=== PATIENT | male | born 1935 | race Caucasian/White ===

== ENCOUNTER 2024-04-16 18:08 | Observation (INO) | payer OTHER, SELFPAY ==
[2024-04-16 15:23] VITALS: BP 163/87
[2024-04-16 15:39] LABS: Glucose - Point of Care 94 mg/dl (70-99)
[2024-04-16 16:00] LABS: % Basophils 0.8 % (0-2); % Eosinophils 3.1 % (0-6); % Immature Granulocytes 0.4 % (0-0.5); % Lymphocytes 23.6 % (20.5-51.1); % Monocytes 10.5 % (1.7-9.3); % Neutrophils 61.6 % (42.2-75.2); Absolute Basophils 0.1 10^3/uL (0-0.2); Absolute Eosinophils 0.2 10^3/uL (0-0.7); Absolute Lymphocytes 1.9 10^3/uL (1.2-3.4); Absolute Monocytes 0.8 10^3/uL (0.1-0.6); Absolute Neutrophils 4.8 10^3/uL (1.4-6.5); Hematocrit 39.1 % (39.0-52.0); Hemoglobin 13.4 g/dL (13.0-18.0); Mean Corp Hgb Conc. 34.3 g/dL (33.0-37.0); Mean Corpuscular Hgb 30.9 pg (27.0-31.0); Mean Corpuscular Volume 90.1 fL (80.0-94.0); Mean Platelet Volume 9.7 fL (7.4-10.4); Nucleated Red Blood Cells % 0 % (-); Platelet Count 191 10^3/uL (130-400); Red Blood Cell Count 4.34 10^6/uL (4.70-6.10); White Blood Cell Count 7.8 10^3/uL (4.8-10.8)
--- NOTE | 2024-04-16 16:25 | ED.GENMED ---
History of Present Illness
General
Chief Complaint: Dizziness
Source: patient
Exam Limitations: none
Time Seen by Provider: 04/16/24 16:06
History of Present Illness
History of Present Illness:
Patient describing vague dizziness. Seem to start late this morning although states he had some few episodes of the last couple days. Not describing true vertigo. No syncope. No headache chest pain shortness of breath or other neurologic
symptoms. [place] uncomfortable driving home. Was here with his .
Past History
Past History
ED Past Medical History: Arrthythmia (SB, SVT), HTN and Hypercholesterolemia
ED Past Surgical History: None
Social History
Tobacco: Non-smoker
Review of Systems
Review of Systems
All Other Systems: Not applicable
Respiratory: Reports no symptoms
Cardiac: Reports no symptoms
Phy Exam
Physical Exam
Physical Exam:
GENERAL: Alert and oriented in no apparent distress
EYE: Orbits normal.
NECK: Supple, no significant adenopathy.
ENT: Pharynx without erythema
CARDIAC: Regular rate and rhythm without any obvious murmurs. Pacemaker upper chest wall
LUNGS: Clear breath sounds,normal
ABDOMEN: Soft, without focal tenderness or distention
NEUROLOGICAL: Alert and oriented , speech normal. Slow to answer many questions however. Patient states this is not unusual. No facial droop. No nystagmus. Extraocular muscles intact. No rotatory nystagmus. No bidirectional nystagmus.
[id number] normal. Light touch intact.
SKIN: Warm and dry, no rash or lesion, no discoloration, skin intact.
MUSCULOSKELETAL: No edema,no deformity.Good color
PSYCH: Normal and appropriate interaction.
Course
Orders/Labs/Results
Orders:
Orders
04/16/24 15:27
Electrocardiogram (*1) Urgent
Reason for Study: Vertigo / Dizzy
EKG- Treatment ONCE
04/16/24 15:39
Complete Blood Count/With Diff Urgent
Comprehensive Metabolic Panel Urgent
Folate Urgent
Comment: ADDON
Iron Urgent
Comment: ADDON
Total Iron Binding Urgent
Comment: ADDON
Transferrin [S] Urgent
Comment: ADDON
Vitamin B12 Urgent
Comment: ADDON
04/16/24 15:41
CT Head W/o Iv Contrast Urgent
Comment:
Reason For Exam: dizziness that started today.
04/16/24 16:25
Cardiac Monitoring- Treatment ONCE
IV Insert/Care/Rem.- Treatment PRN
Pulse Ox/cont/shift [RESP] Stat
Quantity: 1
04/16/24 17:27
Aspirin Chewable [Low Strength Aspirin] 324 mg PO NOW STA
04/16/24 17:[address] Non Medication Order As Directed
Physician Order: NOTIFY MD WHEN MED REC DONE
Above order entered?: Yes
04/16/24 17:41
MRI Brain [MR Brain Without Contrast] Routine
Comment:
Reason For Exam: dizziness
Recent pill cam endoscopy?: No
Orthostatic Vital Signs As Directed
Orthostatic VS Frequency: BID
Comment: include now
Ot Eval And Treat Routine
Pt Eval And Treat Routine
Activity Level: As Tolerated
04/16/24 17:43
Add On- LAB Routine
Tests Added?: iron, ferritin, transferrin, TIBC, B12, folate
04/16/24 17:44
Admit/Transfer Patient As Directed
Co-Sign Provider:
Level of Care: Observation services
Assign to:: Telemetry
Physician / Group: natalie sullivan
Diagnosis: dizziness, ambulatory dysfunction
Reason for Telemetry: Arrhythmia
Date to Stop Telemetry: 04/19/24
Time to Stop Telemetry: 11:00
Reason for Hospitalization: dizziness, ambulatory dysfunction
PRN Pain Medication Management As Directed
May give lesser potent ordered pain med per pt: Yes
preference::
Protocol:: Medication orders for pain may be administered in a
manner that supports deferring to patient preference
when the pt is:
- Requesting an ordered lesser potent pain medication.
Least to most potent pain medications are defined
as: acetaminophen < NSAID < tramadol < opioids
(morphine, oxycodone, hydromorphone).
- Requesting a lesser dose of the same medication IF
ORDERED.
- Requesting a less intrusive route of administration
if both routes are prescribed by the provider (PO <
IV).
04/16/24 17:45
Code Status As Directed
Resuscitation Status: Full Code
04/16/24 17:58
NEUROLOGY CONSULT Routine
Consulting Provider: Dominic Oreilly
Was physician already notified: Yes
04/16/24 17:59
HydrALAZINE [Apresoline] 5 mg IV Q6HPRN PRN
04/16/24 19:26
Acetaminophen [Tylenol/Feverall] 650 mg RECTAL Q4HPRN PRN
Acetaminophen [Tylenol] 650 mg PO Q4HPRN PRN
Enoxaparin Sodium [Lovenox] 40 mg SC QPM
Pantoprazole [Protonix] 40 mg PO QPM
04/16/24 19:26
CT Head Angio W/wo Iv Contrast Routine
Comment:
Reason For Exam: stroke/TIA
Case Management Consult ONCE
Case Management Consult: Discharge Planning
Comment: stroke/tia
DIETARY CONSULT Routine
Reason for Consult: stroke/TIA
Activity As Directed
Activity Level: As Tolerated
NIH Stroke Scale As Directed
Directions: Per protocol
Comment: every shift and with any change in condition or mental status
Neurological Checks As Directed
Frequency: q4h
Additional Instructions:: q4h x 24h upon admission to the floor, then qshift & with any change in condition
and mental status
Pneumatic Compression Sleeves As Directed
Type: Knee high
Vital Signs As Directed
Frequency: Per unit guidelines
Ot Eval And Treat Routine
US Cerebrovascular Routine
Comment:
Reason For Exam: stroke/TIA
DX Deep Vein Thrombosis Video Routine
04/17/24 06:00
BMP [Basic Metabolic Panel] IN AM
Cardiovascular Evaluation IN AM
Complete Blood Count/No Diff IN AM
Glycohemoglobin (HgbA1c) IN AM
TSH Reflex To Free T4 IN AM
Levothyroxine [Synthroid] 100 mcg PO DAILY@0600
04/17/24 08:00
Aspirin Low Dose EC [Aspir Low (Enteric Coated)] 81 mg PO DAILY
Cholecalciferol (Vitamin D3) [VITAMIN D3 (cholecalciferol)] 25 mcg PO DAILY
Multivitamin [Theragran] 1 tablet PO DAILY
Psyllium [Metamucil, Konsyl] 1 packet PO DAILY
04/19/24 11:00
DC Protocol for Telemetry ONCE
Abnormal Lab Results
04/16/24
15:39
RBC 4.34 L 10^6/uL
(4.70-6.10)
Absolute Monos (auto) 0.8 H 10^3/uL
(0.1-0.6)
Monocytes % 10.5 H %
(1.7-9.3)
BUN 23 H mg/dl
(9-20)
04/16/24 15:39
04/16/24 15:39
Vital Signs
Initial and Last Documented VS:
Initial Vital Signs
Temp Pulse Resp BP Pulse Ox
98 F 79 18 163/87 100
04/16/24 15:23 04/16/24 15:23 04/16/24 15:23 04/16/24 15:23 04/16/24 15:23
Last Documented Vital Signs
Temp Pulse Resp BP Pulse Ox
98.3 F 79 18 167/98 99
04/16/24 19:49 04/16/24 20:30 04/16/24 19:49 04/16/24 20:30 04/16/24 19:49
MDM/Problems Addressed
Differential Diagnosis Includes:
Describing disequilibrium somewhat poor historian. Did hit his face getting out of the car likely from unsteadiness. Small abrasion to the right cheek. Patient is able to ambulate but slightly wide-based. Not describing vertigo or inner ear
issues. Workup in progress. However warrants inpatient management.
*Pulse Oximetry
Patient hypoxic: no
*EKG
Interpreted by ED Provider?: Yes
Interpretation: abnormal
Comparison EKG: no changes
Heart Rate: 71
Rate: normal
Rhythm: av sequential
*Critical Care Note
Total Time (30-74mins, 75-104mins- exclusive of procedures): Not Applicable
ED Attending Note
-
Portions of this chart may have been created with voice recognition software.� Occasional wrong word or��sound alike� substitutions may have occurred due to the inherent limitations of voice recognition software.
Discharge Plan
Departure
Patient Disposition: Admit
Date of Disposition: 04/16/24
Time of Disposition: 17:18
Presentation/result/management discussed w/ accepting MD/DO: Hospitalist
Discharge Problem:
Disequilibrium. , Possible cerebellar etiology
Interventions
Interventions:
*Risk Screen - Suicide Last Done: 04/16/24 19:59
*General Assessment Last Done: 04/16/24 15:23
*Neglect/Abuse Screening Last Done: 04/16/24 15:23
ED- Fall Risk Assessment Last Done: 04/16/24 19:19
*ED COVID-19 Vaccine History Last Done: 04/16/24 19:59
*Nursing Disposition Last Done: 04/16/24 19:19
ED- Cardiac Assessment Last Done: 04/16/24 17:35
ED- Neurological Assessment Last Done: 04/16/24 17:35
Discharge Date and Time
Discharge Date/Time: 04/16/24 19:19
[2024-04-16 16:26] VITALS: BP 172/97
[2024-04-16 16:37] LABS: ALT (SGPT) 24 U/L (0-50); AST (SGOT) 38 U/L (17-59); Albumin 4.2 g/dl (3.5-5.0); Alkaline Phosphatase 55 U/L (38-126); Blood Urea Nitrogen 23 mg/dl (9-20); Calcium 10.2 mg/dl (8.4-10.2); Carbon Dioxide 27 mmol/L (22-30); Chloride 103 mmol/L (98-107); Glucose 96 mg/dl (70-99); Potassium 5.1 mmol/L (3.5-5.1); Sodium 140 mmol/L (135-145); Total Bilirubin 0.5 mg/dl (0.2-1.3); Total Protein 6.5 g/dl (6.3-8.2); eGFR > 60.00
[2024-04-16] MEDS: LOW STRENGTH ASPIRIN 324 MG PO (17:47)
--- NOTE | 2024-04-16 17:49 | HPS.HSE ---
Family Physician
-
Family Physician: Erickson Rosales
Chief Complaint
-
Dizziness
History of Present Illness
89-year-old male with past medical history of possible developing dementia, hyperlipidemia, hypertension, hypothyroidism, osteoarthritis, total knee arthroplasty, chronic right bundle branch block came to the hospital with ongoing dizziness. Per
patient his symptoms started a while ago and today he was not feeling good which prompted him to come to the ED for evaluation. He has not seen his primary care provider for this issue. He denies any chest pain, shortness of breath. Denies any
nausea, vomiting, diarrhea, constipation. Denies any abdominal pain.. He is forgetful at times so history is limited
Medical History
Past Medical History
Past Medical History: Reports Arrhythmia, HTN, Hypercholesterolemia and Hypothyroidism
Past Surgical History: Reports Orthopedic
Social History
Tobacco: Non-smoker
Family History
Family History: Not pertinent
Allergies / Home Medications
Allergies reflects when Allergies were last updated in [facility].
Home Medications with original date entered in [facility]
Allergy/Medication List:
Allergies
Allergy/AdvReac Type Severity Reaction Status Date / Time
seasonal allergies Allergy sneezing/PO Uncoded 03/12/21 13:55
LLEN
Home Medications
cholecalciferol (vitamin D3) 25 mcg (1,000 unit) tablet 1,000 units PO DAILY Supplement 12/27/20
fexofenadine-pseudoephedrine ER 180 mg-240 mg tablet,ext.release 24 hr (Rosa-D 24 Hour) 1 tab PO DAILYPRN PRN allergies 12/27/20
levothyroxine 88 mcg tablet 88 mcg PO DAILY Thyroid 12/27/20
lutein 40 mg capsule 40 mg PO DAILY Supplement 12/27/20
multivitamin with folic acid 400 mcg tablet (Tab-A-Shruti) 1 tab PO DAILY Supplement 12/27/20
pantoprazole 40 mg tablet,delayed release 40 mg PO QPM Gastrointestinal issue 12/27/20
polyethylene glycol 3350 17 gram oral powder packet 17 grams PO DAILYPRN PRN CONSTIPATION 12/27/20
psyllium husk (aspartame) 3.4 gram oral powder packet (Metamucil Fiber Singles) 1 packet PO DAILY Constipation 12/27/20
simvastatin 20 mg tablet 40 mg PO QPM High cholesterol 12/27/20
famotidine 20 mg tablet 20 mg PO HS #30 tabs 01/23/21
magnesium hydroxide 400 mg/5 mL oral suspension 30 ml PO DAILYPRN PRN constipation 01/23/21
meloxicam 15 mg tablet 15 mg PO DAILY #14 tabs 01/23/21
acetaminophen 500 mg tablet (Tylenol Extra Strength) 1,000 mg PO QIDPRN PRN mild pain 03/12/21
aspirin 81 mg tablet,delayed release 81 mg PO DAILY 03/12/21
docusate sodium 100 mg capsule 100 mg PO BIDPRN PRN constipation 03/12/21
lisinopril 10 mg tablet 10 mg PO DAILYPRN PRN BP greater then 130 03/12/21
sennosides 8.6 mg tablet (senna) 2 tab PO BIDPRN PRN constipation 03/12/21
Review of Systems
-
History Source: Patient
A 12 point ROS was completed and negative except as noted: Yes
Neurological: Reports Dizzy
Physical Exam
Vital Signs
Vital Signs
Temp Pulse Resp BP Pulse Ox
98 F 72 16 172/97 100
04/16/24 15:23 04/16/24 16:30 04/16/24 16:30 04/16/24 16:26 04/16/24 16:30
Physical Exam
General: Well Nourished and No Apparent Distress
HEENT: Anicteric and Moist mucous membranes
Respiratory: Clear and Non Labored Respirations; No Wheezes
Cardiac: S1/S2 and Regular Rhythm
Breast: Deferred by me
GI: Soft, Non Tender, Non Distended and Normal Bowel Sounds
Rectal: Deferred by Provider
Genito-urinary: No Foster
Musculoskeletal: No Edema
Neuro: Awake, Alert and Oriented
Psych: Calm
Laboratory Results
-
04/16/24 15:39
04/16/24 15:39
Laboratory Results
Total Bilirubin 0.5 mg/dl (0.2-1.3) 04/16/24 15:39
AST 38 U/L (17-59) 04/16/24 15:39
ALT 24 U/L (0-50) 04/16/24 15:39
Alkaline Phosphatase 55 U/L (38-126) 04/16/24 15:39
Data Reviewed
-
Lab Data: Labs Reviewed by me and Discussed with Patient
Impression/Plan
-
Dizziness and possible ataxia, rule out TIA/CVA
CT scan with moderate diffuse cerebral and cerebellar volume loss. 1.7 cm meningioma superior to the left frontal lobe causing mild mass effect.
Check MRI
Check CTA, carotid Doppler
Check orthostatics
Iron panel, B12, folate
Consult neurology
PT/OT
Ambulatory dysfunction
PT/OT
Hypothyroidism
Check TSH with reflex to T4
Continue Synthroid
hx of GERD
hx of bradycardia with pauses
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 Mora
hx of atrial ventricular block, nonrheumatic aortic valve stenosis. Recent echo August 2023 with EF 40 to 45%
History of hypertension
Currently not on any home meds
Hydralazine as needed
History of hyperlipidemia
History of osteoarthritis
History of knee and hip replacement
DVTppx
lovenox
Full code
--- NOTE | 2024-04-16 17:53 | PHANOTE ---
med rec tech(04/16/24)-Attempted to interview patient on home meds, he did not know them. Attempted to contact spouse, left a message to call back. Utilized [facility] and [facility] record from 01/20/24 to compile home med list.
[2024-04-16 18:27] LABS: Iron 101 ug/dl (49-181)
[2024-04-16 18:36] LABS: Percent Saturation 33 % (20-50); Total Iron Binding Capacity 301 ug/dl (261-462)
[2024-04-16 19:49] VITALS: BP 167/98; BMI 22.5
--- NOTE | 2024-04-16 20:00 | PTCARENOTE ---
Patient admitted from ED. Patient AAO x3, forgetful, sometimes slow to respond, only complaint is mild intermittent dizziness. Bed alarm is on. Patient in no acute distress, on RA. Oriented to room and call guajardo within reach.
[2024-04-16] MEDS: NAMENDA 10 MG PO (20:30)
[2024-04-16] MEDS: PROTONIX 40 MG PO (20:30)
[2024-04-16] MEDS: LOVENOX 40 MG SC (20:30)
[2024-04-16] MEDS: LIPITOR 20 MG PO (20:30)
[2024-04-16] MEDS: APRESOLINE 5 MG IV (20:30)
[2024-04-16 20:53] LABS: Folate 15.8 ng/ml (2.76-20); Vitamin B12 580 pg/ml (239-931)
[2024-04-16 23:00] VITALS: BP 134/78; BP 136/79; BP 137/76; PULSE 72; PULSE 73; PULSE 84
[2024-04-17 03:00] VITALS: BP 143/88
[2024-04-17 03:25] VITALS: BP 127/75
[2024-04-17] MEDS: SYNTHROID 100 MCG PO (05:59)
[2024-04-17 07:30] VITALS: BP 144/79
[2024-04-17 07:42] LABS: Hematocrit 39.8 % (39.0-52.0); Hemoglobin 13.8 g/dL (13.0-18.0); Mean Corp Hgb Conc. 34.7 g/dL (33.0-37.0); Mean Corpuscular Hgb 31.4 pg (27.0-31.0); Mean Corpuscular Volume 90.7 fL (80.0-94.0); Mean Platelet Volume 9.8 fL (7.4-10.4); Platelet Count 156 10^3/uL (130-400); Red Blood Cell Count 4.39 10^6/uL (4.70-6.10); Red Cell Dist. Width 13.9 % (11.5-14.5); White Blood Cell Count 6.6 10^3/uL (4.8-10.8)
[2024-04-17 08:01] LABS: Blood Urea Nitrogen 15 mg/dl (9-20); Calcium 9.6 mg/dl (8.4-10.2); Carbon Dioxide 25 mmol/L (22-30); Chloride 103 mmol/L (98-107); Estimated Creatinine Clearance 79 ml/min; Glucose 85 mg/dl (70-99); HDL Cholesterol 49 mg/dl; LDL Cholesterol, Calculated 97 mg/dl; Potassium 4.2 mmol/L (3.5-5.1); Sodium 139 mmol/L (135-145); Total Cholesterol 167 mg/dl (50-199); Triglyceride 105 mg/dl (10-149); Very Low Density Lipoprotein 21 mg/dl (0-30); eGFR > 60.00
[2024-04-17 08:31] LABS: TSH Reflex To Free T4 6.56 uIU/ml (0.47-4.68)
--- NOTE | 2024-04-17 08:47 | CON.NEURO ---
Neuro Assessment/Plan
Assessment
IMPRESSIONS:
Abrupt onset dizziness in a patient with prior history of dizziness and significant Alzheimer's disease. Differential diagnosis includes benign paroxysmal positional vertigo (BPPV).
Plan
Recommendation:
Physical therapy evaluation and treatment
Not clear patient would benefit from MRI of brain, may consider as outpatient
Continue aspirin
Continue memantine
No additional labs necessary to evaluate the patient's cognitive issue
Will continue to follow as needed. Please contact us with additional questions or issues.
Consultation
Order
Date of Consultation: 04/17/24
Requesting Provider:
Reason for Consult:
Subjective/Objective
Subjective Data
Date of Service: April 17, 2024
Right-Handed
Patient unable to provide own information about dizziness. Patient presented to this hospital's emergency department with a suggestion of of dizziness, according to medical records. Reportedly, there were no additional symptoms or known modifying
factors. The patient is described in other medical records as having had a sense of dizziness in the past of unclear nature.
The patient is described as having significant dementia and medical records which has been treated with memantine.
Objective Data
Vital Signs
Temp Pulse Resp BP Pulse Ox
36.8 C 71 16 127/75 96
04/17/24 03:25 04/17/24 03:25 04/17/24 03:25 04/17/24 03:25 04/17/24 03:25
Lab Results
04/17/24 07:14
04/17/24 07:14
Sodium 139 mmol/L (135-145) 04/17/24 07:14
Potassium 4.2 mmol/L (3.5-5.1) 04/17/24 07:14
BUN 15 mg/dl (9-20) 04/17/24 07:14
Glucose 85 mg/dl (70-99) 09/14/24 07:14
Calcium 9.6 mg/dl (8.4-10.2) 04/17/24 07:14
LDL Cholesterol, Calc 97 mg/dl 04/17/24 07:14
Vitamin B12 580 pg/ml (239-931) 04/16/24 15:39
Patient Allergies
seasonal allergies Allergy (Uncoded 03/12/21 13:55)
sneezing/POLLEN
Review of Systems
-
History Source: Patient
All other systems: Reviewed and negative
EENT: Negative Decreased Vision or Swallowing Difficulty
Respiratory: Negative Trouble Breathing
Cardiac: Negative Chest Pain
Abdomen/GI: Negative Incontinence of Stool
Genitourinary: Negative Incontinence
Musculoskeletal: Negative Back Pain or Neck Pain
Neuro: Negative Dizzy or Headache
Physical Exam
-
General: No Apparent Distress and Appears Stated Age
Eyes: OU Absent Papilledema, Round OU, Frederickson Conjunctivae and No Ptosis
HEENT: Anicteric and Moist Mucous Membranes
Neck: Full Range of Motion
Respiratory: No Dyspnea
Cardiac: No JVD
GI: Non-distended
Skin: Unremarkable
Extremities: No Clubbing, No Cyanosis and No Edema
Psych: Intact Judgement/Insight
Extended Neurological Exam
Mood & Affect: Mood Unremarkable and Affect Unremarkable
Attention Span & Concentration: Awake, Alert, Interactive and Moderate Difficulty with 2 Step Request
Memory: Able to Recall (Month and year), Reduced (For holiday order) and Unable to Recall Personal History
Tremor: Hand Tremor Absent and Head Tremor Absent
Involuntary Movement: None
Speech: Quality Unremarkable and Quantity Unremarkable
Cranial Nerve II: Left Eye: Pupillary Reactivity Unremarkable, Pupillary Size Unremarkable and Visual Huynh Intact
Cranial Nerve II: Right Eye: Pupillary Reactivity Unremarkable, Pupillary Size Unremarkable and Visual Huynh Intact
Cranial Nerves III, IV, : Extraocular Movement: Extraocular Movement Full in all Directions
Cranial Nerve VII: Facial Symmetry: Normal Facial Symmetry
Cranial Nerve VIII: Hearing: Unremarkable Hearing to Normal Conversational Volume
Cranial Nerves IX, X: Palate Movement: Palate Elevation Symmetric
Cranial Nerve XI: Shoulder Shrug: Unremarkable
Cranial Nerve XII: Tongue Protusion: Midline
Muscle Strength, Overall: Full Throughout
Muscle Bulk & Tone: Bulk Unremarkable and Tone Unremarkable
Pronator Drift: No Drift in Upper Extremities
Deep Tendon Reflexes: Unremarkable Throughout
Touch Sensation: Unremarkable
Coordination: [id number]-[id number] Testing Unremarkable
Babinski Sign: Absent Bilaterally
Data Reviewed
-
Labs: Report Reviewed
Reviewed with: Physician and Patient
Old Records: Summarized
Medications
-
Active Medications
Generic Name Dose Route Start Last Admin
Trade Name Freq PRN Reason Stop Dose Admin
Acetaminophen 650 mg 04/16/24 19:26
Acetaminophen 650 Mg Rectal Suppository RECTAL 05/14/24 19:25
Q4HPRN PRN
HERRING, mild pain, or temp >100.4F
Acetaminophen 650 mg 04/16/24 19:26
Acetaminophen 325 Mg Tablet PO 05/14/24 19:25
Q4HPRN PRN
HERRING, mild pain, or temp >100.4F
Aspirin 81 mg 04/17/24 08:00
Aspirin 81 Mg (Enteric Coated) Tablet PO 05/15/24 07:59
DAILY CRISTIN
Atorvastatin Calcium 20 mg 04/16/24 20:00 04/16/24 20:30
Atorvastatin (Lipitor) 20 Mg Tablet PO 05/14/24 19:59 20 mg
QPM CRISTIN Administration
Cholecalciferol 25 mcg 04/17/24 08:00
Cholecalciferol (Vitamin D3) 25 Mcg Tablet (1,000 Units) PO 05/15/24 07:59
DAILY CRISTIN
Enoxaparin Sodium 40 mg 04/16/24 19:26 04/16/24 20:30
Enoxaparin Sodium 40 Mg/0.4 Ml Syringe SC 05/14/24 19:25 40 mg
QPM CRISTIN Administration
Hydralazine HCl 5 mg 04/16/24 17:59 04/16/24 20:30
Hydralazine 20 Mg/Ml Vial IV 05/14/24 17:58 5 mg
Q6HPRN PRN Administration
SBP>160
Levothyroxine Sodium 100 mcg 04/17/24 06:00 04/17/24 05:59
Levothyroxine 100 Mcg Tablet PO 05/15/24 05:59 100 mcg
DAILY@0600 CRISTIN Administration
Memantine 10 mg 04/16/24 20:00 04/16/24 20:30
Memantine 10 Mg Tablet PO 05/14/24 19:59 10 mg
BID CRISTIN Administration
Multivitamins Therapeutic 1 tablet 04/17/24 08:00
Multivitamin Tablet PO 05/15/24 07:59
DAILY CRISTIN
Pantoprazole Sodium 40 mg 04/16/24 19:26 04/16/24 20:30
Pantoprazole 40 Mg Delayed Release Tablet PO 05/14/24 19:25 40 mg
QPM CRISTIN Administration
Psyllium Hydrophilic Mucilloid 1 packet 04/17/24 08:00
Psyllium Packet PO 05/15/24 07:59
DAILY CRISTIN
Home Medications
�Medication �Instructions �Recorded
cholecalciferol (vitamin D3) 25 1,000 units PO DAILY Supplement 12/27/20
mcg (1,000 unit) tablet
lutein 40 mg capsule 40 mg PO DAILY Supplement 12/27/20
multivitamin with folic acid 400 1 tab PO DAILY Supplement 12/27/20
mcg tablet (Tab-A-Shruti)
pantoprazole 40 mg tablet,delayed 40 mg PO QPM Gastrointestinal issue 12/27/20
release
psyllium husk (aspartame) 3.4 gram 1 packet PO DAILY Constipation 12/27/20
oral powder packet (Metamucil
Fiber Singles)
simvastatin 20 mg tablet 40 mg PO QPM High cholesterol 12/27/20
aspirin 81 mg tablet,delayed 81 mg PO DAILY 03/12/21
release
levothyroxine 100 mcg tablet 100 mcg PO DAILY 04/16/24
memantine 28 mg capsule 28 mg PO DAILY 04/16/24
sprinkle,extended release 24hr
Past History
Past History
ED Past Medical History: Arrthythmia (SB, SVT), CHF, GERD, HTN, Hypercholesterolemia, Valvular disease (Aortic valve), Hypothyroidism, Other (Alzheimer's disease, cardiomyopathy, amaurosis fugax 2018, left parafalcine meningioma, rosacea, colonic
polyposis, rosacea, ocular migraine) and Other (Borderline diabetes)
ED Past Surgical History: Cardiac (Pacemaker 2020), Orthopedic (Right TKA 2018, left TKA) and Other (Uvulopalatopharyngoplasty 1999, bilateral cataract extraction, right herniorrhaphy 1979)
Social History
Tobacco: Non-smoker
Family History
Family History: Other (Reviewed and noncontributory)
[2024-04-17 09:01] LABS: Free T4 1.17 ng/dl (0.78-2.19)
[2024-04-17] MEDS: THERAGRAN 1 TABLET PO (09:45)
[2024-04-17] MEDS: ASPIR LOW (ENTERIC COATED) 81 MG PO (09:45)
[2024-04-17] MEDS: VITAMIN D3 (cholecalciferol) 25 MCG PO (09:45)
[2024-04-17] MEDS: NAMENDA 10 MG PO (09:45)
[2024-04-17] MEDS: METAMUCIL, KONSYL 1 PACKET PO (09:46)
[2024-04-17 09:57] LABS: Glycohemoglobin (HgbA1c) 6.2 % (4.0-5.6)
[2024-04-17 10:55] VITALS: BP 151/83; BP 155/79; BP 157/91; PULSE 71; PULSE 73; PULSE 74; PULSE 79; PULSE 82; O2SAT 99
[2024-04-17 11:29] VITALS: BP 124/73; BP 134/75; BP 136/71; PULSE 64; PULSE 73
--- NOTE | 2024-04-17 12:30 | W.PN.HOSP.TC ---
Today's Communication/Plan
-
Monitor vital signs see plan
Continue with aspirin
MRI outpatient with PCP if able
Neurology, vascular, neurosurgery follow-up
Spouse updated over the phone
Time of discharge 36 minutes
Assessment / Plan
Assessment / Plan
General: Well Nourished and No Apparent Distress
HEENT: Anicteric and Moist mucous membranes
Respiratory: Clear and Non Labored Respirations; No Wheezes
Cardiac: S1/S2 and Regular Rhythm
GI: Soft, Non Tender, Non Distended and Normal Bowel Sounds
Genito-urinary: No Foster
Musculoskeletal: No Edema
Neuro: Awake, Alert and Oriented
Psych: Calm
Intermittent Dizziness and possible ataxia
Unclear etiology, spoke with neurology and they do not think MRI is necessary at this time. CT head with meningioma for which patient will be referred to neurosurgery outpatient.
CTA with plaque burden, will refer to vascular surgery outpatient. Patient at this time denies any dizziness. Orthostatic negative. Has been evaluated by physical therapy who recommended home health. Spoke with patient's spouse who agrees with
plan for discharge
CT scan with moderate diffuse cerebral and cerebellar volume loss. 1.7 cm meningioma superior to the left frontal lobe causing mild mass effect.
MRI can be done outpatient. With PCP, would need cardiology clearance given pacemaker
neurology following
PT/OT
Alzheimer's dementia
Continue memantine
Ambulatory dysfunction
PT/OT
Hypothyroidism
Continue Synthroid
hx of GERD
Prediabetes
Monitor
hx of bradycardia with pauses
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 Mora
hx of atrial ventricular block, nonrheumatic aortic valve stenosis. Recent echo August 2023 with EF 40 to 45%
History of hypertension
Currently not on any home meds
Hydralazine as needed
History of hyperlipidemia
History of osteoarthritis
History of knee and hip replacement
DVTppx
lovenox
Full code
Anticipated Discharge: Today
Subjective/Interval History
-
Date of Service: April 17, 2024
Denies headache
Objective Data
-
Labs:
Laboratory Results
04/17/24
07:14
WBC 6.6
Hgb 13.8
Hct 39.8
Plt Count 156
Sodium 139
Potassium 4.2
Chloride 103
Carbon Dioxide 25
BUN 15
Creatinine 0.7
Glucose 85
Calcium 9.6
Vital Signs:
Vital Signs
Temp Pulse Resp BP Pulse Ox
97.3 F 78 18 144/79 94
04/17/24 07:30 04/17/24 07:30 04/17/24 07:30 04/17/24 07:30 04/17/24 07:30
--- NOTE | 2024-04-17 12:45 | W.DCSUMMARY ---
Discharge Summary
Discharge Data
Date of Admission: 04/16/24
Date of Discharge: 04/17/24
-
Pending Results: No
Hospital Course
89-year-old male with past medical several times dementia, hypothyroidism, GERD, bradycardia with pauses status post pacemaker, hypertension, hyperlipidemia, osteoarthritis came to the hospital with ongoing intermittent dizziness. Patient was seen
by neurology throughout hospitalization. Patient initially had CT head which was negative for acute CVA however did show meningioma for which patient instructed to follow-up with neurosurgery outpatient. He also got CTA which showed possible
subclavian stenosis with plaque for which he was instructed to follow-up with vascular surgery outpatient. Orthostatics were checked which were negative. Patient was seen by physical therapy who recommended home health. Neurology did not think
patient will need an inpatient MRI so instructed patient to follow-up with his primary care provider for outpatient MRI if okay with cardiology given his pacemaker. Since patient symptoms continue to improve, he was then discharged home with
instructions to follow-up with all his physicians outpatient.
Discharge Plan
-
Patient Disposition: Home (Routine Discharge)
Discharge Diagnosis/Procedures: Ambulatory dysfunction
Intermittent dizziness
Subclavian stenosis
Diet: As tolerated
Activity: As tolerated
Driving Restrictions: Not until seen by your Dr
Bathing Restrictions: None
Referrals:
Dominic Oreilly MD [Active] - in three to four weeks
Erickson Rosales MD [Family Provider] - in less than 1 week
Jc Jimenez MD [Active] - in one to two weeks
Tana Troy MD [Active] - in one to two weeks
Prescriptions:
Continued
pantoprazole 40 MG tablet,delayed release (DR/EC)
40 mg PO QPM
simvastatin 20 MG tablet
40 mg PO QPM
cholecalciferol (vitamin D3) 1,000 UNITS tablet
1,000 units PO DAILY
multivitamin with folic acid [Tab-A-Shruti] 1 TABLET tablet
1 tab PO DAILY
lutein 40 MG capsule
40 mg PO DAILY
Metamucil Fiber Singles 1 PACKET powder in packet
1 packet PO DAILY
aspirin 81 MG tablet,delayed release (DR/EC)
81 mg PO DAILY
levothyroxine 100 mcg Tablet
100 mcg PO DAILY
memantine 28 mg Capsule,Sprinkle,Er 24hr
28 mg PO DAILY
Discharge Orders:
Discharge Patient (As Directed); Ordered 04/17/24
Ordered By: Dameon Colin
Discharge Date and Time
Discharge Date/Time: 04/17/24 16:20
Print Language: CANADIAN
--- NOTE | 2024-04-17 15:06 | CM ---
Addendum entered by Palak Neely 04/17/24 15:17:
[facility]
Original Note:
CM met with Mr. Negron at bedside and also spoke to his via telephone. Pt states he resides with his in a one story home with two steps to enter. He states prior to admission he ambulated with a single point cane or RW at times. He
states prior to admission he was independent with adls. His has home 02. Mr. Negron has a prescription plan; uses mail order and [facility] when needed.
Discharge order placed. Pt's requests home care services with [facility].
Plan: discharge to home with his spouse today. His daughter in law will drive him home.
[2024-04-17 15:37] VITALS: BP 143/88
[2024-04-19 05:29] LABS: Transferrin 205 mg/dL (200-360)
== END 2024-04-17 16:20 | disposition home or self-care (01) ==
LOC: 4 EAST ACU 18:08
PROVIDERS: Emergency Medicine; ADMITTING PHYSICIAN Internal Medicine; CONSULT PHYSICIAN Psychiatry & Neurology Neurology; EMERGENCY PHYSICIAN Emergency Medicine; FAMILY PHYSICIAN Internal Medicine
DX: R42 Dizziness and giddiness (principal); R26.2 Difficulty in walking, not elsewhere classified; E78.00 Pure hypercholesterolemia, unspecified; I11.0 Hypertensive heart disease with heart failure; S00.81XA Abrasion of other part of head, initial encounter; V48.4XXA Person boarding or alighting a car injured in noncollision transport accident, initial encounter; Y93.89 Activity, other specified; Y92.9 Unspecified place or not applicable; F02.80 Dementia in other diseases classified elsewhere, unspecified severity, without behavioral disturbance, psychotic disturbance, mood disturbance, and anxiety; E03.9 Hypothyroidism, unspecified; D32.0 Benign neoplasm of cerebral meninges; K21.9 Gastro-esophageal reflux disease without esophagitis; R00.1 Bradycardia, unspecified; I35.0 Nonrheumatic aortic (valve) stenosis; I50.9 Heart failure, unspecified; I42.9 Cardiomyopathy, unspecified; I67.81 Acute cerebrovascular insufficiency; I65.23 Occlusion and stenosis of bilateral carotid arteries; R94.31 Abnormal electrocardiogram [ECG] [EKG]; R73.03 Prediabetes; I45.10 Unspecified right bundle-branch block; G30.8 Other Alzheimer's disease; M19.90 Unspecified osteoarthritis, unspecified site; Z79.82 Long term (current) use of aspirin; Z96.653 Presence of artificial knee joint, bilateral; Z95.0 Presence of cardiac pacemaker; Z79.890 Hormone replacement therapy; Z79.1 Long term (current) use of non-steroidal anti-inflammatories (NSAID); Z87.19 Personal history of other diseases of the digestive system
CPT/HCPCS: 70450; 70496; 70498; 80048; 80053; 80061; 82607; 82746; 82962; 83036; 83540; 83550; 84439; 84443; 84466; 85025; 85027; 93005; 94760; 97162; 97166; 99285; G0378; Q9967

== ENCOUNTER → 2024-05-28 12:49 | Outpatient (REF) | payer OTHER, SELFPAY | LOC: RAD 12:49 | PROVIDERS: ATTENDING PHYSICIAN Surgery Vascular Surgery; FAMILY PHYSICIAN Internal Medicine | DX: I77.1 Stricture of artery (principal) | CPT/HCPCS: 93880; 93923; 93930 ==